=== PATIENT | male | born 1950 | race Caucasian/White ===

== ENCOUNTER 2017-07-17 21:45 | Inpatient (IN) | payer MEDICARE, OTHER ==
[2017-07-18] MEDS: ONDANSETRON (ODT) 4 MG TAB ODT (00:40)
[2017-07-18] MEDS: LIDOCAINE/MYLANTA 40 ML BTL PO (00:46)
[2017-07-18] MEDS: METOCLOPRAMIDE 10 MG INJ IV (01:17)
[2017-07-18] MEDS: GLUCAGON 1 MG INJ IM (01:18)
[2017-07-18 03:20] LABS: ALANINE AMINOTRANSFERASE 32 IU/L (13-69); ALBUMIN 3.9 g/dl (3.3-4.9); ALBUMIN/GLOBULIN RATIO 0.97; ALKALINE PHOSPHATASE 152 IU/L (42-121); ANION GAP 17 (8-16); ASPARTATE AMINO TRANSFERASE 56 IU/L (15-46); BLOOD UREA NITROGEN 9 mg/dl (7-20); CALCIUM 8.4 mg/dl (8.4-10.2); CARBON DIOXIDE 24 mmol/L (21-31); CHLORIDE 110 mmol/L (97-110); CREATININE 0.77 mg/dl (0.61-1.24); GLUCOSE 107 mg/dl (70-220); POTASSIUM 3.7 mmol/L (3.5-5.1); SODIUM 147 mmol/L (135-144); TOTAL PROTEIN 7.9 g/dl (6.1-8.1)
[2017-07-18] MEDS: IOHEXOL 300MG/ML 150 ML BTL (03:58)
[2017-07-18] MEDS: SOD CHLORIDE 0.9% 100 ML (03:59)
[2017-07-18 05:53] LABS: ADD MAN DIFF? NO
[2017-07-18 06:17] LABS: WHITE BLOOD COUNT 4.3 10^3/ul (4.8-10.8)
[2017-07-18 06:17] LABS: ABNORMAL IP MESSAGE 1; BASOPHILS % 0.5 % (0.0-2.0); EOSINOPHILS % 0.2 % (0.0-7.0); HEMATOCRIT 36.8 % (42.0-52.0); HEMOGLOBIN 12.6 g/dl (14.0-18.0); LYMPHOCYTES # 0.5 10^3/ul (0.8-2.9); LYMPHOCYTES % 11.6 % (15.0-51.0); MEAN CORPUSCULAR HEMOGLOBIN 32.9 pg (29.0-33.0); MEAN CORPUSCULAR HGB CONC 34.2 g/dl (32.0-37.0); MEAN CORPUSCULAR VOLUME 96.1 fl (82.0-101.0); MEAN PLATELET VOLUME 10.6 fl (7.4-10.4); MONOCYTE # 0.3 10^3/ul (0.3-0.9); NEUTROPHIL # 3.5 10^3/ul (1.6-7.5); NEUTROPHILS % 80.2 % (39.0-77.0); PLATELET COUNT 48 10^3/UL (140-415); POSITIVE DIFF @See below; RED BLOOD COUNT 3.83 10^6/ul (4.70-6.10); RED CELL DISTRIBUTION WIDTH 16.4 % (11.5-14.5)
[2017-07-18] MEDS ORDERED: NACL 0.9% 3 ML SYG IV (06:30)
[2017-07-18] MEDS ORDERED: ACETAMINOPHEN 325 MG TAB PO (06:30)
[2017-07-18] MEDS: D5W-0.45 NACL + KCL 20 MEQ 1,000 ML IV (07:48)
[2017-07-18] MEDS: ONDANSETRON 4 MG INJ IV (08:09)
[2017-07-18 08:49] LABS: INR 1.31; PROTIME 16.5 Sec (11.9-14.9); PT RATIO 1.3
[2017-07-18 08:50] LABS: PARTIAL THROMBOPLASTIN TIME 34.9 Sec (25.0-35.0)
[2017-07-18] MEDS ORDERED: PROPOFOL 20 ML (19:47)
[2017-07-18] MEDS ORDERED: FENTAnyl 50 MCG/ML VIAL (19:47)
[2017-07-18] MEDS: METOCLOPRAMIDE 10 MG TAB PO (21:29)
[2017-07-19] MEDS: D5W-0.45 NACL + KCL 20 MEQ 1,000 ML IV (03:12)
[2017-07-19] MEDS: PANTOPRAZOLE (EC) 40 MG TAB PO (05:46)
[2017-07-19] MEDS: METOCLOPRAMIDE 10 MG TAB PO (05:46)
== END 2017-07-19 14:55 | disposition home or self-care (01) | DRG 394 ==
LOC: FTE 21:45 → PP2 07-18 05:46
PROC: 0DJ08ZZ Inspection of Upper Intestinal Tract, Via Natural or Artificial Opening Endoscopic (ICD-10-PCS; principal; 2017-07-18 19:45)
DX: T18.108A Unspecified foreign body in esophagus causing other injury, initial encounter (principal); E87.0 Hyperosmolality and hypernatremia; D69.59 Other secondary thrombocytopenia; K70.30 Alcoholic cirrhosis of liver without ascites; K22.10 Ulcer of esophagus without bleeding; K26.9 Duodenal ulcer, unspecified as acute or chronic, without hemorrhage or perforation; K72.90 Hepatic failure, unspecified without coma; X58.XXXA Exposure to other specified factors, initial encounter; I10 Essential (primary) hypertension; D64.9 Anemia, unspecified; K11.20 Sialoadenitis, unspecified; K22.2 Esophageal obstruction; K29.70 Gastritis, unspecified, without bleeding; Y93.89 Activity, other specified; Y92.019 Unspecified place in single-family (private) house as the place of occurrence of the external cause; Y99.8 Other external cause status; Z87.891 Personal history of nicotine dependence
CPT/HCPCS: 36415; 70491; 71250; 80053; 85025; 85610; 85730; 96372; 96374; 96375; 96376; 99285-25

== ENCOUNTER 2017-07-21 15:28 | Outpatient (CLI) | payer MEDICARE, OTHER | END 2017-07-21 15:57 | disposition home or self-care (01) | LOC: DCC 15:28 | DX: K27.9 Peptic ulcer, site unspecified, unspecified as acute or chronic, without hemorrhage or perforation (principal); K74.60 Unspecified cirrhosis of liver; D64.9 Anemia, unspecified | CPT/HCPCS: G0463 ==

== ENCOUNTER → 2018-09-26 | Outpatient (CLI) | payer MEDICARE, OTHER | END | disposition home or self-care (01) | LOC: U/S 09:09 | DX: K74.60 Unspecified cirrhosis of liver (principal) | CPT/HCPCS: 76700 ==